=== PATIENT | female | born 1955 | race Caucasian/White ===

== ENCOUNTER 2017-04-15 11:55 | Day surgery (SDC) | payer OTHER ==
[2017-04-15] VITALS (182 sets, daily range): BP systolic 133–157; BP diastolic 73–90; PULSE 58–81; TEMP 97.1–97.9; O2SAT 95–100
[~2017-04-15] VITALS: Ht 160 cm; Wt 79.0 kg
[2017-04-15 13:08] LABS: INR 1.1 (0.8-3.0)
[2017-04-15 13:15] LABS: HEMATOCRIT 39.5 % (37.0-47.0); MEAN CELL VOLUME 85 fl (80.0-100.0); MEAN CORPUSCULAR HEMOGLOBIN 28 pg (27.0-31.0); MEAN CORPUSCULAR HGB CONC 33 g/dl (33.0-37.0); PLATELET COUNT 236 K/mm3 (130-400); RED BLOOD COUNT 4.67 M/mm3 (4.10-5.30); REDCELL DISTRIBUTION WIDTH-CV 14.4 % (11.5-14.5); WHITE BLOOD COUNT 9.1 K/mm3 (4.8-10.8)
[2017-04-15 13:22] LABS: CALCIUM 9.1 mg/dL (8.4-10.2); CREATININE, serum 0.59 mg/dL (0.52-1.25); POTASSIUM 3.6 mmol/L (3.4-5.0)
[2017-04-15] MEDS ORDERED: PRINZIDE 12.5 M1 TA1 PO (13:41)
[2017-04-15] MEDS ORDERED: ZOCOR 20MG20 MG PO (13:42)
[2017-04-15] MEDS ORDERED: MENEST0.3 MG PO (13:42)
[2017-04-15] MEDS ORDERED: ASPIRIN 81M81 MG/TA2 PO (13:43)
[2017-04-15] MEDS ORDERED: PRIL40 PO (13:44)
[2017-04-15] MEDS ORDERED: DETROL LA4 PO (13:44)
[2017-04-15] MEDS ORDERED: PAXIL 10MG10 MG PO (13:45)
[2017-04-15] MEDS ORDERED: [UNRECOGNIZED DRUG - OTHER] PO (13:46)
[2017-04-15] MEDS ORDERED: OPTIVAR 6 ML 6 M6 ML OP (13:47)
[2017-04-15] MEDS ORDERED: ATROVENT I0.2 MG/1 M IH (13:48)
[2017-04-15] MEDS ORDERED: ALBUTEROL S0.4 MG/ML PO (13:48)
[2017-04-15] MEDS ORDERED: TYLENOL 325MG325 MG PO (13:50)
[2017-04-15] MEDS ORDERED: MUCINEX 60600 MG/TA1 PO (13:52)
[2017-04-15] MEDS ORDERED: VTAMINC250TA PO (13:53)
[2017-04-16] VITALS (325 sets, daily range): BP systolic 124–143; BP diastolic 67–79; PULSE 69–81; TEMP 97.4–98.6; O2SAT 94–99
[2017-04-16 06:03] LABS: HEMOGLOBIN 12.1 g/dl (12.5-16.0); MEAN CELL VOLUME 84 fl (80.0-100.0); MEAN CORPUSCULAR HEMOGLOBIN 27 pg (27.0-31.0); MEAN CORPUSCULAR HGB CONC 33 g/dl (33.0-37.0); MEAN PLATELET VOLUME 9.5 fl (7.4-10.4); PLATELET COUNT 221 K/mm3 (130-400); RED BLOOD COUNT 4.41 M/mm3 (4.10-5.30); REDCELL DISTRIBUTION WIDTH-CV 14.4 % (11.5-14.5); WHITE BLOOD COUNT 8.9 K/mm3 (4.8-10.8)
[2017-04-16 06:17] LABS: CALCIUM 8.5 mg/dL (8.4-10.2); CREATININE, serum 0.63 mg/dL (0.52-1.25); POTASSIUM 3.3 mmol/L (3.4-5.0)
[2017-04-16] MEDS ORDERED: TOPROL XL 25MG25 MG PO (11:59)
[2017-04-16] MEDS ORDERED: ZANTAC 7575 MG PO (12:01)
[2017-04-16] MEDS ORDERED: PLAVIX 75MG TAB75 MG PO (12:05)
== END 2017-04-16 12:40 | disposition home or self-care (01) ==
LOC: COL.CAR 11:55 → IMCU 16:43 → COL.CAR 04-16 12:40
PROVIDERS: Internal Medicine Interventional Cardiology
DX: I25.10 Atherosclerotic heart disease of native coronary artery without angina pectoris (principal); I10 Essential (primary) hypertension; E78.2 Mixed hyperlipidemia; I70.213 Atherosclerosis of native arteries of extremities with intermittent claudication, bilateral legs; F17.210 Nicotine dependence, cigarettes, uncomplicated; Z80.9 Family history of malignant neoplasm, unspecified
CPT/HCPCS: OP; C1760; C1769; C1874; C1887; C9600; C9601; J0583; J2250; J3010; Q9967

== ENCOUNTER 2017-06-27 19:23 | Emergency (ER) | payer OTHER ==
[~2017-06-27] VITALS: Ht 157.5 cm; Wt 81.4 kg
[~2017-06-27 19:23] MED LIST: ALBUTEROL S0.4 MG/ML PO; ASPIRIN 81M81 MG/TA2 PO; ATROVENT I0.2 MG/1 M IH; DETROL LA4 PO; MENEST0.3 MG PO; MUCINEX 60600 MG/TA1 PO; OPTIVAR 6 ML 6 M6 ML OP; PAXIL 10MG10 MG PO; PLAVIX 75MG TAB75 MG PO; PRIL40 PO; PRINZIDE 12.5 M1 TA1 PO; TOPROL XL 25MG25 MG PO; TYLENOL 325MG325 MG PO; VTAMINC250TA PO; ZANTAC 7575 MG PO; ZOCOR 20MG20 MG PO; [UNRECOGNIZED DRUG - OTHER] PO
[2017-06-27 19:25] VITALS: BP 176/76; PULSE 81; TEMP 98
[2017-06-27] MEDS ORDERED: ESTRACE0.5 MG PO (20:24)
[2017-06-27] MEDS ORDERED: PROTONIX 40MG T40 MG PO (20:24)
== END 2017-06-27 20:08 | disposition home or self-care (01) ==
LOC: COL.ER 19:23
DX: I97.618 Postprocedural hemorrhage of a circulatory system organ or structure following other circulatory system procedure (principal); Z95.820 Peripheral vascular angioplasty status with implants and grafts; I73.9 Peripheral vascular disease, unspecified; I25.10 Atherosclerotic heart disease of native coronary artery without angina pectoris; J44.9 Chronic obstructive pulmonary disease, unspecified; I10 Essential (primary) hypertension; E78.5 Hyperlipidemia, unspecified

== ENCOUNTER 2017-08-08 12:24 | Emergency (ER) | payer MEDICARE ==
[~2017-08-08] VITALS: Ht 162.6 cm; Wt 81.8 kg
[~2017-08-08 12:24] MED LIST changes: +ESTRACE0.5 MG PO; +PROTONIX 40MG T40 MG PO
[2017-08-08 12:30] VITALS: BP 160/83; TEMP 97.5
[2017-08-08] MEDS ORDERED: ROBAXIN 75750 MG/TAB PO (14:19)
[2017-08-08 14:43] VITALS: PULSE 72
== END 2017-08-08 14:44 | disposition home or self-care (01) ==
LOC: COL.ER 12:24
DX: M54.31 Sciatica, right side (principal); I10 Essential (primary) hypertension; I25.10 Atherosclerotic heart disease of native coronary artery without angina pectoris; E78.5 Hyperlipidemia, unspecified; J45.909 Unspecified asthma, uncomplicated; F17.210 Nicotine dependence, cigarettes, uncomplicated; Z87.39 Personal history of other diseases of the musculoskeletal system and connective tissue; Z86.79 Personal history of other diseases of the circulatory system; Z79.82 Long term (current) use of aspirin; Z79.02 Long term (current) use of antithrombotics/antiplatelets; Z95.5 Presence of coronary angioplasty implant and graft; Z90.710 Acquired absence of both cervix and uterus
CPT/HCPCS: J2360

== ENCOUNTER → 2018-03-17 | Outpatient (CLI) | payer MEDICARE ==
[~2018-03-17] MED LIST changes: +ROBAXIN 75750 MG/TAB PO
== END ==
LOC: COL.PUL 09:42
DX: Z01.89 Encounter for other specified special examinations (principal)

== ENCOUNTER → 2018-03-24 | Outpatient (CLI) | payer MEDICARE | LOC: COL.PUL 12:26 | DX: R06.02 Shortness of breath (principal); F17.210 Nicotine dependence, cigarettes, uncomplicated | CPT/HCPCS: J7674 ==

== ENCOUNTER 2018-04-24 09:38 | Emergency (ER) | payer MEDICARE, MEDICAID ==
[~2018-04-24] VITALS: Ht 162.6 cm; Wt 86.8 kg
[2018-04-24 10:16] LABS: BASO # 0.1 (0.0-0.2); BASO % 0.6 % (0.0-2.0); EOS # 0.2 (0.0-0.7); EOS % 2.2 % (0-4.0); GRAN # 4.8 (1.4-6.5); GRAN % 53.8 % (42.2-75.2); HEMATOCRIT 42.8 % (37.0-47.0); HEMOGLOBIN 14.2 g/dl (12.5-16.0); LYMPH # 3.1 (1.2-3.4); MEAN CELL VOLUME 86 fl (80.0-100.0); MEAN CORPUSCULAR HEMOGLOBIN 28 pg (27.0-31.0); MEAN CORPUSCULAR HGB CONC 33 g/dl (33.0-37.0); MEAN PLATELET VOLUME 9.4 fl (7.4-10.4); MONO # 0.8 (0.1-0.6); MONO % 9.1 % (1.7-9.3); PLATELET COUNT 237 K/mm3 (130-400); REDCELL DISTRIBUTION WIDTH-CV 13.4 % (11.5-14.5)
[2018-04-24 10:20] LABS: PROTHROMBIN TIME 11.1 SECONDS (9.7-12.8)
[2018-04-24 10:23] LABS: PARTIAL THROMBOPLASTIN TIME 45.7 SECONDS (26.0-37.0)
[2018-04-24 10:26] LABS: ALANINE AMINOTRANSFERASE 36 U/L (9-52); ALBUMIN 4.5 gm/dL (3.5-5.0); ALKALINE PHOSPHATASE 76 U/L (50-136); ANION GAP 13 mmol/L (7-16); AST,SGOT 42 U/L (15-37); BILIRUBIN,TOTAL 0.5 mg/dL (0.0-1.0); BLOOD UREA NITROGEN 10 mg/dL (7-17); CALCIUM 10.1 mg/dL (8.4-10.2); CARBON DIOXIDE 28 mmol/L (22-30); CHLORIDE 101 mmol/L (98-107); CREATININE, serum 0.63 mg/dL (0.52-1.25); GLUCOSE 115 mg/dL (74-106); POTASSIUM 3.7 mmol/L (3.4-5.0); SODIUM 142 mmol/L (137-145); TOTAL PROTEIN 8.6 gm/dL (6.4-8.2)
[2018-04-24 10:37] LABS: TROPONIN-I < 0.012 ng/mL (0.000-0.034)
[2018-04-24] MEDS ORDERED: NITROSTAT0.4 MG/TAB SL (11:03)
[2018-04-24] MEDS ORDERED: ZOFRAN ODT4 MG PO (11:21)
[2018-04-24 11:42] VITALS: BP 144/95; PULSE 76; TEMP 97
== END 2018-04-24 11:28 | disposition home or self-care (01) ==
LOC: COL.ER 09:38
PROVIDERS: Family Medicine
DX: R07.89 Other chest pain (principal); I10 Essential (primary) hypertension; I25.10 Atherosclerotic heart disease of native coronary artery without angina pectoris; E78.5 Hyperlipidemia, unspecified; J44.9 Chronic obstructive pulmonary disease, unspecified; Z87.891 Personal history of nicotine dependence; Z85.820 Personal history of malignant melanoma of skin; Z95.5 Presence of coronary angioplasty implant and graft; Z79.82 Long term (current) use of aspirin; Z79.02 Long term (current) use of antithrombotics/antiplatelets

== ENCOUNTER 2019-02-10 12:24 | Emergency (ER) | payer MEDICARE ==
[~2019-02-10] VITALS: Ht 160 cm; Wt 90.5 kg
[~2019-02-10 12:24] MED LIST changes: +NITROSTAT0.4 MG/TAB SL; +ZOFRAN ODT4 MG PO
[2019-02-10 12:43] VITALS: TEMP 98.2
[2019-02-10] MEDS ORDERED: HCTZ 25MG TAB25 MG PO (13:31)
[2019-02-10] MEDS ORDERED: NORVASC 5MG5 MG/TAB PO (13:31)
[2019-02-10] MEDS ORDERED: CRESTOR40 MG PO (13:32)
[2019-02-10] MEDS ORDERED: DETROL LA4 PO (13:32)
[2019-02-10 13:49] LABS: BASO # 0.1 (0.0-0.2); BASO % 0.5 % (0.0-2.0); EOS # 0.3 (0.0-0.7); EOS % 2.9 % (0-4.0); GRAN # 4.3 (1.4-6.5); GRAN % 47.2 % (42.2-75.2); HEMATOCRIT 42.2 % (37.0-47.0); HEMOGLOBIN 13.7 g/dl (12.5-16.0); LYMPH # 3.7 (1.2-3.4); MEAN CELL VOLUME 87 fl (80.0-100.0); MEAN CORPUSCULAR HEMOGLOBIN 28 pg (27.0-31.0); MEAN CORPUSCULAR HGB CONC 33 g/dl (33.0-37.0); MEAN PLATELET VOLUME 10.3 fl (7.4-10.4); MONO # 0.8 (0.1-0.6); MONO % 8.2 % (1.7-9.3); PLATELET COUNT 206 K/mm3 (130-400); RED BLOOD COUNT 4.88 M/mm3 (4.10-5.30); REDCELL DISTRIBUTION WIDTH-CV 14.1 % (11.5-14.5)
[2019-02-10 14:18] LABS: ALBUMIN 4.2 gm/dL (3.5-5.0); BILIRUBIN,TOTAL 0.3 mg/dL (0.0-1.0); CALCIUM 9.9 mg/dL (8.4-10.2); CREATININE, serum 0.63 mg/dL (0.52-1.25); POTASSIUM 3.4 mmol/L (3.4-5.0); TOTAL PROTEIN 7.3 gm/dL (6.4-8.2)
[2019-02-10 15:00] VITALS: BP 130/69; PULSE 68
== END 2019-02-10 15:54 | disposition home or self-care (01) ==
LOC: COL.ER 12:24
PROVIDERS: Emergency Medicine; Physician Assistant
DX: M79.661 Pain in right lower leg (principal); I25.10 Atherosclerotic heart disease of native coronary artery without angina pectoris; J44.9 Chronic obstructive pulmonary disease, unspecified; F17.210 Nicotine dependence, cigarettes, uncomplicated; Z90.710 Acquired absence of both cervix and uterus; Z90.89 Acquired absence of other organs; Z98.890 Other specified postprocedural states; Z86.79 Personal history of other diseases of the circulatory system; Z79.82 Long term (current) use of aspirin

== ENCOUNTER 2019-06-26 20:13 | Emergency (ER) | payer MEDICARE ==
[~2019-06-26] VITALS: Ht 160 cm; Wt 93.2 kg
[~2019-06-26 20:13] MED LIST changes: +CRESTOR40 MG PO; +HCTZ 25MG TAB25 MG PO; +NORVASC 5MG5 MG/TAB PO
[2019-06-26 20:24] VITALS: TEMP 98.7
[2019-06-26 21:34] LABS: CALCIUM 9.7 mg/dL (8.4-10.2); CREATININE, serum 0.76 (0.52-1.25); POTASSIUM 3.4 mmol/L (3.4-5.0)
[2019-06-26 21:50] LABS: BASO % 0.4 % (0.0-2.0); EOS # 0.2 (0.0-0.7); EOS % 1.8 % (0-4.0); GRAN # 5.2 (1.4-6.5); GRAN % 51.1 % (42.2-75.2); HEMATOCRIT 39.7 % (37.0-47.0); HEMOGLOBIN 12.8 g/dl (12.5-16.0); LYMPH # 3.7 (1.2-3.4); LYMPH % 36.5 % (20.0-51.0); MEAN CELL VOLUME 87 fl (80.0-100.0); MEAN CORPUSCULAR HEMOGLOBIN 28 pg (27.0-31.0); MEAN CORPUSCULAR HGB CONC 32 g/dl (33.0-37.0); MEAN PLATELET VOLUME 9.7 fl (7.4-10.4); MONO % 9.7 % (1.7-9.3); PLATELET COUNT 218 K/mm3 (130-400); RED BLOOD COUNT 4.56 M/mm3 (4.10-5.30); REDCELL DISTRIBUTION WIDTH-CV 14.6 % (11.5-14.5)
[2019-06-26 22:27] VITALS: BP 121/77; PULSE 84
== END 2019-06-26 22:27 | disposition home or self-care (01) ==
LOC: COL.ER 20:13
PROVIDERS: Physician Assistant
DX: M79.89 Other specified soft tissue disorders (principal); M79.604 Pain in right leg; J44.9 Chronic obstructive pulmonary disease, unspecified; Z90.710 Acquired absence of both cervix and uterus; F17.210 Nicotine dependence, cigarettes, uncomplicated; Z90.89 Acquired absence of other organs; Z79.82 Long term (current) use of aspirin; Z79.02 Long term (current) use of antithrombotics/antiplatelets

== ENCOUNTER → 2019-10-09 | Outpatient (CLI) | payer MEDICARE ==
[2019-10-09 17:37] LABS: TROPONIN-I < 0.012 ng/mL (0.000-0.035)
== END ==
LOC: ZCOL.LAB 16:06
PROVIDERS: Internal Medicine Interventional Cardiology
DX: I25.10 Atherosclerotic heart disease of native coronary artery without angina pectoris (principal); R07.9 Chest pain, unspecified

== ENCOUNTER → 2019-11-23 | Outpatient (CLI) | payer MEDICARE, OTHER | LOC: COL.RAD 09:27 | DX: K82.8 Other specified diseases of gallbladder (principal) | CPT/HCPCS: A9537; J2805 ==

== ENCOUNTER 2020-01-01 05:08 | Day surgery (SDC) | payer MEDICARE, OTHER ==
[~2020-01-01] VITALS: Ht 160 cm; Wt 87.7 kg
[2020-01-01 05:59] VITALS: BP 104/50; PULSE 71; TEMP 97.7
[2020-01-01] MEDS ORDERED: MUCINEX 60600 MG/TA1 PO (06:14)
[2020-01-01] MEDS ORDERED: TYLENOL 500MG500 MG PO (06:14)
[2020-01-01] MEDS ORDERED: VITAMIN C500 MG PO (06:15)
[2020-01-01 08:53] VITALS: BP 114/58; PULSE 76; TEMP 98.6
--- NOTE | 2020-01-01 08:53 | NUR ---
PATIENT TRANSPORTED BACK TO [facility] PER CART ACCOMMPANIED BY PACU STAFF. MONITORS APPLIED. VSS. PATIENT ON ROOM AIR. PATIENT ALERT AND TALKING WITH STAFF. PATIENT DENIES DISCOMFORT AND NAUSEA. PATIENT REQUESTING COFFEE. DAUGHTER AT BEDSIDE. REPORT RECEIVED.
[2020-01-01 09:04] VITALS: TEMP 97.8
[2020-01-01 09:10] VITALS: BP 112/56; PULSE 72
--- NOTE | 2020-01-01 09:10 | NUR ---
VSS. PATIENT DRINKING COFFEE AND EATING PUDDING WITHOUT PROBLEMS. PATIENT DENIES DISCOMFORT AND NAUSEA. TALKING WITH DAUGHTER.
[2020-01-01 09:25] VITALS: BP 111/62; PULSE 70
--- NOTE | 2020-01-01 09:50 | NUR ---
0948 DISCHARGE INSTRUCTIONS GIVEN VERBAL AND WRITTEN. FOLLOWUP APPOINTMENT GIVEN. QUESTIONS ANSWERED AND PATIENT VERBALIZED UNDERSTANDING. PERSONAL BELONGINGS GIVEN BACK. [id number] PATIENT DISCHARGED PER W/C ACC[facility]AN[facility]
--- NOTE | 2020-01-01 10:23 | NUR ---
VSS. PATIENT AMBULATES TO BATHROOM WITH STAND BY ASSIST. PATIENT VOIDS WITHOUT PROBLEMS. PATIENT COMMENTS THAT SHE IS READY TO GO HOME.
== END 2020-01-01 09:47 | disposition home or self-care (01) ==
LOC: SDCO 05:08
DX: K81.1 Chronic cholecystitis (principal); K21.9 Gastro-esophageal reflux disease without esophagitis; I25.10 Atherosclerotic heart disease of native coronary artery without angina pectoris; G47.33 Obstructive sleep apnea (adult) (pediatric); Z79.02 Long term (current) use of antithrombotics/antiplatelets; Z79.899 Other long term (current) drug therapy; Z79.82 Long term (current) use of aspirin; I10 Essential (primary) hypertension; J44.9 Chronic obstructive pulmonary disease, unspecified; J45.909 Unspecified asthma, uncomplicated; E78.00 Pure hypercholesterolemia, unspecified; Z95.828 Presence of other vascular implants and grafts; F17.210 Nicotine dependence, cigarettes, uncomplicated; Z88.5 Allergy status to narcotic agent; Z88.8 Allergy status to other drugs, medicaments and biological substances; I73.9 Peripheral vascular disease, unspecified; M43.10 Spondylolisthesis, site unspecified; G89.29 Other chronic pain; F32.9 Major depressive disorder, single episode, unspecified
CPT/HCPCS: J0690; J1100; J1885; J2405; J2704; J3010; J7120

== ENCOUNTER → 2020-05-29 | Outpatient (CLI) | payer MEDICARE, OTHER ==
[~2020-05-29] MED LIST changes: +TYLENOL 500MG500 MG PO; +VITAMIN C500 MG PO
[2020-05-29 15:26] LABS: TROPONIN-I < 0.012 ng/mL (0.000-0.035)
== END ==
LOC: ZCOL.LAB 12:33
PROVIDERS: Internal Medicine Interventional Cardiology
DX: E55.9 Vitamin D deficiency, unspecified (principal); R06.02 Shortness of breath

== ENCOUNTER → 2020-06-03 | Outpatient (CLI) | payer MEDICARE, OTHER | LOC: COL.RAD 07:30 | DX: R19.7 Diarrhea, unspecified (principal); K59.00 Constipation, unspecified; K21.9 Gastro-esophageal reflux disease without esophagitis | CPT/HCPCS: A9541 ==

== ENCOUNTER → 2021-01-22 | Outpatient (CLI) | payer MEDICARE, OTHER ==
[2021-01-22 17:38] LABS: TROPONIN-I < 0.012 ng/mL (0.000-0.035)
== END ==
LOC: ZCOL.LAB 15:26
PROVIDERS: Nurse Practitioner
DX: R07.89 Other chest pain (principal)

== ENCOUNTER 2021-02-26 07:59 | Emergency (ER) | payer MEDICARE, OTHER ==
[~2021-02-26] VITALS: Ht 160 cm; Wt 89.1 kg
[2021-02-26 09:46] VITALS: BP 125/79; PULSE 74; TEMP 97.6
== END 2021-02-26 09:48 | disposition home or self-care (01) ==
LOC: COL.ER 07:59
DX: T82.838A Hemorrhage due to vascular prosthetic devices, implants and grafts, initial encounter (principal); I25.10 Atherosclerotic heart disease of native coronary artery without angina pectoris; I10 Essential (primary) hypertension; F17.210 Nicotine dependence, cigarettes, uncomplicated; Z79.02 Long term (current) use of antithrombotics/antiplatelets; Z88.8 Allergy status to other drugs, medicaments and biological substances; Z88.1 Allergy status to other antibiotic agents; Z88.6 Allergy status to analgesic agent; Z79.82 Long term (current) use of aspirin

== ENCOUNTER → 2021-08-27 | Outpatient (CLI) | payer MEDICARE, OTHER | LOC: COL.RAD 10:00 | DX: Z12.2 Encounter for screening for malignant neoplasm of respiratory organs (principal); Z87.891 Personal history of nicotine dependence ==

== ENCOUNTER → 2024-03-07 | Outpatient (CLI) | payer MEDICARE, OTHER | LOC: COL.RAD 09:14 | DX: Z12.2 Encounter for screening for malignant neoplasm of respiratory organs (principal); Z87.891 Personal history of nicotine dependence ==